=== PATIENT | female | born 1960 | race African-American/Black ===

== ENCOUNTER 2017-09-03 09:56 | Outpatient (CLI) | payer BC ==
[2017-09-03 10:35] LABS: ALT (SGPT) 31 U/L (8-55); AST (SGOT) 21 U/L (5-34); Alkaline Phosphatase 52 U/L (40-150); Anion Gap 15 mmol/L (10-20); BUN (Urea Nitrogen) 36 mg/dL (9.8-20.1); Bilirubin, Total 0.4 mg/dL (0.2-1.2); Calc. Creatinine Clearance 0 mL/min (70-130); Calcium 9.7 mg/dL (7.8-10.44); Carbon Dioxide 25 mmol/L (22-29); Chloride 102 mmol/L (98-107); Cholesterol 170 mg/dl (< 200 Desired); Estimated GFR-MDRD 57; Globulin 3.8 g/dL (2.4-3.5); LDL Cholesterol, Calculated 94 mg/dL; Protein, Total 7.9 g/dL (6.0-8.3)
[2017-09-03 11:34] LABS: Hemoglobin A1c 6.4 % (4.0-6.0)
--- NOTE | 2017-09-03 12:53 | RAD ---
RIGHT KNEE THREE VIEWS: HISTORY: A 57-year-old female with right knee pain for 2 weeks. 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 No fracture or dislocation. IMPRESSION: Degenerative changes without fracture or dislocation. POS: [id number]
== END 2017-09-03 09:57 | disposition home or self-care (01) ==
LOC: SCSRAD 09:56 → EEVIPCON 09:56 → SCSRAD 09:57
PROVIDERS: ATTEND Family Medicine
DX: M25.561 Pain in right knee (principal); E11.9 Type 2 diabetes mellitus without complications; M17.11 Unilateral primary osteoarthritis, right knee
CPT/HCPCS: 36415; 80053; 80061; 83036